=== PATIENT | female | born 1965 | race Caucasian/White ===

== ENCOUNTER → 2018-08-01 09:25 | Outpatient (CLI) | payer OTHER, SELFPAY ==
[2018-08-01 10:27] LABS: Hemoglobin A1c 5.2 % (4.2-6.3)
[2018-08-01 10:44] LABS: Cholesterol 228 mg/dL (200); High Density Lipoprotein 73 mg/dL; Thyroid Stim Hormone (TSH) 1.48 uIU/mL (0.358-3.74); Triglycerides 108 mg/dL; Very Low Density Lipoprotein 22 mg/dL (5-40)
== END ==
PROVIDERS: Family Provider Internal Medicine; PCP Internal Medicine; Referring Provider Internal Medicine; Visit Provider Internal Medicine
DX: Z13.220 Encounter for screening for lipoid disorders (principal); Z83.3 Family history of diabetes mellitus; F41.9 Anxiety disorder, unspecified
CPT/HCPCS: 36415; 80061; 83036; 84443

== ENCOUNTER → 2018-08-18 16:52 | Outpatient (CLI) | payer OTHER, SELFPAY ==
--- NOTE | 2018-08-18 16:54 | BI_ITS ---
MAMMOGRAPHY - BILATERAL SCREENING REASON FOR EXAM: Female, 53 years old. Routine annual screening examination. PERTINENT HISTORY: Non-contributory. TECHNIQUE: Digital bilateral breast michael (3D mammographic acquisition) in the CC and MLO projections. 2-D mediolateral oblique (MLO) and craniocaudad (CC) views of both breasts were obtained. CAD: Full Field Digital Mammography with Computer Added Detection was performed. COMPARISON: Comparison is made with prior study dated June 03, 2017 and March 01, 2016. FINDINGS: Breast Composition: The breasts are heterogeneously dense, which may obscure small masses. There are no dominant masses or suspicious calcifications. No other significant abnormalities are identified. There has been no significant change since the prior study. BI/SCREENING MAMM (CAD), BILAT IMPRESSION: Stable bilateral screening mammogram. Yearly follow-up mammogram recommended. (A) ASSESSMENT CATEGORY: BIRADS Category 1: Negative. A letter regarding these results will be sent to the patient by the facility within 30 days. Approximately 10% of breast cancers are not detected by mammography. A normal mammogram should not delay biopsy of a clinically suspicious abnormality. [id number] Electronically Signed: Shaun Brush MD at 10:22 EDT Tel [phone], Service support ,
== END ==
PROVIDERS: Family Provider Internal Medicine; PCP Internal Medicine; Visit Provider Internal Medicine
DX: Z12.31 Encounter for screening mammogram for malignant neoplasm of breast (principal)
CPT/HCPCS: 77063; 77067

== ENCOUNTER → 2019-02-23 13:59 | Outpatient (CLI) | payer OTHER, SELFPAY | PROVIDERS: Family Provider Internal Medicine; PCP Internal Medicine; Referring Provider Internal Medicine; Visit Provider Internal Medicine | DX: R00.2 Palpitations (principal) | CPT/HCPCS: 93225; 93226 ==

== ENCOUNTER → 2019-03-20 08:02 | Outpatient (CLI) | payer OTHER, SELFPAY ==
[2019-03-20 08:22] LABS: Absolute Lymphocyte Count 1.55 X10^3/ul (0.83-4.51); Absolute Neutrophil Count 2.9 X10^3/uL (2.0-7.7); Basophil# 0.04 X10^3/uL; Basophil% 0.8 % (0-1); Eosinophil# 0.34 X10^3/uL; Eosinophils% 6.4 % (0-5); Hemoglobin 13.5 g/dl (12.0-15.0); Lymphocyte # 1.55 X10^3/ul (4.0); Lymphocyte % 29.2 % (19-41); Mean Corp Hgb Conc 33.8 g/gl (32-36); Mean Corpuscular Volume 91.7 fL (81-99); Mean Platelet Vol. 9.6 fl (6.2-12.0); Monocyte# 0.47 X10^3/uL; Monocyte% 8.9 % (0-10); Neutrophil # 2.88 X10^3/uL (2.7-7.7); Neutrophil % 54.3 % (47-70); Platelet Count 280 K/mm3 (150-450); RBC Distribution Width CV 12.7 % (11.6-14.6); RBC Distribution Width SD 42.7 fl (35.1-43.9); Red Blood Count 4.36 M/mm3 (4.2-5.4); White Blood Count 5.3 K/mm3 (4.4-11.0)
[2019-03-20 08:24] LABS: POSITIVE COUNT NO; POSITIVE DIFFERENTIAL NO; POSITIVE MORPHOLOGY NO
[2019-03-20 09:16] LABS: ALB/GLOB Ratio 1.1 RATIO (0.9-2.4); AST(SGOT) 19 U/L (15-37); Alanine Aminotransfer ALT/SGPT 21 U/L (13-56); Albumin, Serum 3.6 g/dL (3.2-5.0); Alkaline Phosphatase 63 U/L (45-117); Anion Gap 6 (5-15); BUN 17 mg/dL (7-18); Calcium,Total 8.4 mg/dL (8.5-10.1); Chloride 106 mmol/L (98-107); Creatinine, Serum 1.06 mg/dL (0.55-1.02); EST Glomerular Filtration Rate 57 mL/min (>60); Est Glom Filt Rate - Afr Amer 69 mL/min (>60); Globulin 3.3 g/dL (2.2-4.2); Glucose 93 mg/dL (74-106); Magnesium 2.1 mg/dL (1.6-2.6); Protein, Total 6.9 g/dL (6.4-8.2); Sodium Level 140 mmol/L (136-145); Thyroid Stim Hormone (TSH) 1.73 uIU/mL (0.358-3.74)
[2019-03-22 11:34] LABS: Vitamin D,25 Hydroxy 76.5 ng/mL (29.95-100.01)
[2019-03-22 12:06] LABS: CHOLESTEROL TOTAL 238 mg/dL (100-199); HDL-C 78 mg/dL (>39); SMALL LDL-P 418 nmol/L (<=527); TRIGLYCERIDES 83 mg/dL (0-149)
[2019-03-22 12:19] LABS: INSULIN RESISTANCE SCORE <25 (<=45); LDL SIZE 21.6 nm (>20.5); LDL-C 143 mg/dL (0-99); LDL-P 1669 nmol/L (<1000)
== END ==
PROVIDERS: Family Provider Internal Medicine; PCP Internal Medicine; Referring Provider Internal Medicine; Visit Provider Internal Medicine
DX: Z13.220 Encounter for screening for lipoid disorders (principal); E55.9 Vitamin D deficiency, unspecified; R00.2 Palpitations
CPT/HCPCS: 36415; 80053; 80061; 82306; 83704; 83735; 84443; 85025

== ENCOUNTER → 2019-08-19 15:14 | Outpatient (CLI) | payer OTHER, SELFPAY ==
--- NOTE | 2019-08-19 15:17 | BI_ITS ---
MAMMOGRAPHY - BILATERAL SCREENING REASON FOR EXAM: Female, 54 years old. Routine annual screening examination. PERTINENT HISTORY: Mother with breast cancer. TECHNIQUE: Digital bilateral breast chiquita (3D mammographic acquisition) in the CC and MLO projections. 2-D mediolateral oblique (MLO) and craniocaudad (CC) views of both breasts were obtained. CAD: Full Field Digital Mammography with Computer Added Detection was performed. COMPARISON: Comparison is made with prior examination in August 18, 2018 and June 03, 2017. FINDINGS: Breast Composition: The breasts are heterogeneously dense, which may obscure small masses. There are no dominant masses or suspicious calcifications. No other significant abnormalities are identified. There has been no significant change since the prior study. BI/SCREEN MAMM (CAD) W/CHIQUITA BILAT IMPRESSION: Stable bilateral screening mammogram. Yearly follow-up mammogram recommended. (A) ASSESSMENT CATEGORY: BIRADS Category 1: Negative. A letter regarding these results will be sent to the patient by the facility within 30 days. Approximately 10% of breast cancers are not detected by mammography. A normal mammogram should not delay biopsy of a clinically suspicious abnormality. [id number] Electronically Signed: Shaun Brush, at 8:36 EDT , Service support ,
--- NOTE | 2019-08-19 15:19 | BD_ITS ---
STUDY: DUAL ENERGY X-RAY ABSORPTIOMETRY / DXA REASON FOR EXAM: Female, 54 years old. The patient is postmenopausal. No loss of height. TECHNIQUE: Bone Mineral Density (BMD) measurements of lumbar spine and bilateral hips were obtained. COMPARISON: Comparison is made with prior examination in June 03, 2017. FINDINGS: Lumbar Spine (L1-L4): g/cm2 (1.172) / T-score (0.0) / Z-score (0.8) Findings are suggestive of normal bone density with a low fracture risk. Left Femur Total: g/cm2 (0.871) / T-score (-1.1) / Z-score (-0.4) Left Femoral Neck: g/cm2 (0.839) / T-score (-1.4) / Z-score (-0.4) Right Femur Total: g/cm2 (0.849) / T-score (-1.3) / Z-score (-0.6) Right Femoral Neck: g/cm2 (0.783) / T-score (-1.8) / Z-score (0.8) The T-Scores on the most recent prior examination were: Lumbar Spine (L1-L4): There has been worsening of bone density since the previous examination. Left Femur Total: which represents an improvement of 7%. Right Femur Total: which represents a worsening of 2.3%. BD/Dexa Bone Density Study IMPRESSION: The patient is considered osteopenic as outlined below according to World Won Organization (WHO) criteria with a moderate fracture risk. There has been worsening of bone density since the previous examination. Reference Information: The T-score is the number of standard deviations above or below the standard which is normal for young adults at their peak bone mineral density. The World Health Organization (WHO) interprets the T-scores as follows: Above -1 Normal bone density Between -1 and -2.5 Osteopenia Equal to / or below -2.5 Osteoporosis As a practical clinical guideline, osteopenia may be graded as follows: Mild -1 through -1.5 Moderate -1.6 through -2.0 Severe -2.1 through -2.4 The Z-score is the number of standard deviations above or below age-matched controls. A Z-score of less than -1.5 would be considered abnormal. References: 1. NIH Osteoporosis and Related Bone Diseases http://www.osteo.org 2. International Society for Clinical Densitometry http://www.iscd.org 3. National Osteoporosis Foundation http://www.nof.org Electronically Signed: Shaun Brush, at 8:23 EDT , Service support ,
== END ==
PROVIDERS: Family Provider Internal Medicine; PCP Internal Medicine; Referring Provider Internal Medicine; Visit Provider Internal Medicine
DX: Z12.31 Encounter for screening mammogram for malignant neoplasm of breast (principal); Z78.0 Asymptomatic menopausal state
CPT/HCPCS: 77063; 77067; 77080

== ENCOUNTER → 2019-12-27 07:57 | Outpatient (CLI) | payer OTHER, SELFPAY ==
[2019-12-27 10:44] LABS: Thyroid Stim Hormone (TSH) 1.93 uIU/mL (0.358-3.74)
[2019-12-28 09:21] LABS: Vitamin D,25 Hydroxy 60.4 ng/mL
== END ==
PROVIDERS: PCP Internal Medicine; Referring Provider Internal Medicine; Visit Provider Internal Medicine
DX: E55.9 Vitamin D deficiency, unspecified (principal); F41.1 Generalized anxiety disorder
CPT/HCPCS: 36415; 82306; 84443

== ENCOUNTER → 2020-10-06 15:33 | Outpatient (CLI) | payer OTHER, SELFPAY ==
--- NOTE | 2020-10-06 15:36 | BI_ITS ---
MAMMOGRAPHY - BILATERAL SCREENING REASON FOR EXAM: Female, 55 years old. Routine annual screening examination. PERTINENT HISTORY: Non-contributory. TECHNIQUE: Digital bilateral breast chiquita (3D mammographic acquisition) in the CC and MLO projections. 2-D mediolateral oblique (MLO) and craniocaudad (CC) views of both breasts were obtained. CAD: Full Field Digital Mammography with Computer Added Detection was performed. COMPARISON: Comparison is made with prior study dated 08/19/2019 and 08/18/2018. FINDINGS: Breast Composition: The breasts are heterogeneously dense, which may obscure small masses. There are no dominant masses or suspicious calcifications. No other significant abnormalities are identified. There has been no significant change since the prior study. BI/SCREEN MAMM (CAD) W/CHIQUITA BILAT IMPRESSION: Stable bilateral screening mammogram. Yearly follow-up mammogram recommended. (A) ASSESSMENT CATEGORY: BIRADS Category 1: Negative. A letter regarding these results will be sent to the patient by the facility within 30 days. Approximately 10% of breast cancers are not detected by mammography. A normal mammogram should not delay biopsy of a clinically suspicious abnormality. [id number] Electronically Signed: Shaun Brush, at 8:50 EST , Service support ,
== END ==
PROVIDERS: PCP Internal Medicine; Referring Provider Internal Medicine; Visit Provider Internal Medicine
DX: Z12.31 Encounter for screening mammogram for malignant neoplasm of breast (principal); Z78.0 Asymptomatic menopausal state
CPT/HCPCS: 77063; 77067

== ENCOUNTER → 2021-04-21 08:36 | Outpatient (CLI) | payer OTHER, SELFPAY ==
[2021-04-21 08:12] VITALS: BMI 29.5
--- NOTE | 2021-04-21 08:39 | RAD_ITS ---
HISTORY: right foot pain. TECHNIQUE: XR Foot Min 3 Views. Number of images including paperwork: 3. COMPARISON: None. FINDINGS: OSSEOUS STRUCTURES: No acute fracture. Mineralization unremarkable. JOINT SPACES: Maintained. No dislocation. RAD/Foot min 3 Views IMPRESSION: No acute fracture or dislocation identified in the right foot. at 0942 Reported and signed by: Mine Gil MD Electronically Signed: Mine Gil MD at 9:40 EDT Tel , Service support ,
== END ==
PROVIDERS: PCP Internal Medicine; Referring Provider Physician Assistant; Visit Provider Physician Assistant
DX: M79.671 Pain in right foot (principal)
CPT/HCPCS: 73630

== ENCOUNTER 2021-05-27 17:11 | Emergency (ER) | payer OTHER, SELFPAY ==
[2021-04-21 08:12] VITALS: BMI 29.5
[2021-05-27 17:12] VITALS: BP 142/93; PULSE 106; PULSE 108; RESP 18; TEMP 36.3; O2SAT 97; O2SAT 98; BMI 28.8
--- NOTE | 2021-05-27 17:47 | RAD_ITS ---
STUDY: X-RAY - LEFT ANKLE REASON FOR EXAM: Female, 55 years old. Injury, pain TECHNIQUE: 3 view(s) of the ankle. COMPARISON: None. FINDINGS: Normal visualized distal tibia and fibula. Normal medial and lateral malleoli. Normal tibiotalar articulation and ankle mortise. Cortical irregularity with potential fracture line involves the plantar surface of the cuboid best seen on lateral view. There is also cortical irregularity of the anterior and inferior calcaneus with potential adjacent osseous fragment (lateral view). The visualized subtalar, talonavicular, calcaneocuboid and tarsal articulations are normal. The soft tissue structures are unremarkable. RAD/Ankle min 3 Views IMPRESSION: Possible nondisplaced cuboid and inferior, anterior calcaneal fractures. Electronically Signed: Velasquez Bryant MD ([place]) at 18:09 EDT , Service support ,
--- NOTE | 2021-05-27 17:47 | RAD_ITS ---
STUDY: X-RAY - LEFT FOOT CLINICAL: Female, 55 years old. injury, dorsal foot pain TECHNIQUE: 3 view(s) of the foot. COMPARISON: None. FINDINGS: Cortical irregularity with potential fracture line involves the plantar surface of the cuboid best seen on lateral view. There is also cortical irregularity of the anterior and inferior calcaneus with potential adjacent osseous fragment (lateral view). Normal visualized subtalar, talonavicular, calcaneocuboid, tarsal and tarsometatarsal articulations. Normal metatarsi. Normal metatarsophalangeal joint of the great toe. Normal tibial and fibular sesamoid bones. Normal interphalangeal joint of the great toe. Normal phalanges of the great toe. Normal second through fifth metatarsophalangeal joints. Normal interphalangeal joints and phalanges of the lesser toes. Mild soft tissue swelling. RAD/Foot min 3 Views IMPRESSION: Possible nondisplaced cuboid and inferior, anterior calcaneal fractures. Electronically Signed: Velasquez Bryant MD ([place]) at 18:08 EDT , Service support ,
[2021-05-27] MEDS: HYDROcodone Bitartrate/Apap 5/325 Tablet PO ×2 (17:56→19:29)
--- NOTE | 2021-05-27 18:00 | EDS_ITS ---
HPI History of Present Illness Chief Complaint: Lower Extremity Injury Informant: patient Narrative Narrative: Patient is a 55-year-old female who presents to the emergency department for left ankle and foot pain. She states that her dog ran into her and she heard a pop. Majority the pain is over the top of her foot and around her entire ankle. She denies injuring anything else. She has not been able to bear any weight on it since. She has not taken anything for it. She currently rates pain as severe. Any movement or weightbearing aggravates this. Resting alleviates her symptoms somewhat. [facility] Medical History (Updated 05/27/21 @ 19:[address] Junaid Gaspar DO) Anxiety and depression Asthma S/P colorectal surgery, follow-up exam Home Medications calcium citrate-vitamin D3 2 ea PO DAILY 09/15/14 [History Last Taken Unknown] duloxetine 90 mg PO DAILY 09/15/14 [History Last Taken Unknown] budesonide 0.25 mg/2 mL suspension for nebulization 0.25 mg INHALATION BID 04/21/21 [History Last Taken Unknown] conjugated estrogens 0.3 mg tablet 0.3 mg PO DAILY 04/21/21 [History Last Taken Unknown] amlodipine 2.5 mg PO DAILY 05/27/21 [History Last Taken Unknown] hydrocodone-acetaminophen 1 tab PO Q8H PRN 3 Days #10 tab 05/27/21 [Rx Last Taken Unknown] Allergy/AdvReac Type Severity Reaction Status Date / Time amoxicillin [From Augmentin] Allergy Mild vomitting Verified 04/21/21 08:14 clavulanic acid Allergy Mild vomitting Verified 04/21/21 08:14 [From Augmentin] codeine Allergy Mild vomitting Verified 04/21/21 08:14 Surgical History H/O: hysterectomy History of [facility] Hx of cholecystectomy S/P tonsillectomy and adenoidectomy Social History Smoking Status: Never smoker alcohol intake: never substance use type: does not use what type of physical activity do you participate in: none seatbelt use: always do you feel safe at home: No ROS ROS ED Constitutional Constitutional ED: Denies chills or fever(s) Eyes Eyes: Denies change in vision ENT ENT ED: Denies rhinorrhea Cardiovascular Cardiovascular: Denies chest pain Respiratory/Chest Respiratory/Chest: Denies cough or dyspnea Gastrointestinal Gastrointestinal: Denies abdominal pain, nausea or vomiting Musculoskeletal Musculoskeletal: Denies back pain or neck pain Integumentary Denies rash Neurologic Neurologic: Denies dizziness, headache(s) or weakness EXAM Physical Exam Const Vital Signs: 05/27/21 17:12 Temperature 97.3 F L Temperature Source Temporal Pulse Rate 106 H Respiratory Rate 18 Blood Pressure 142/93 H Blood Pressure Mean 109 Pulse Ox 97 Oxygen Delivery Method Room Air Positive well nourished and well developed General Appearance ED: well developed and NAD HEENT Reports normocephalic and head/scalp atraumatic Negative for trauma Eyes PERRL and EOMs intact bilaterally Neck supple Resp normal respiratory effort and clear to auscultation bilaterally Auscultation: Negative for rales, rhonchi or wheezes Cardio regular rate, regular rhythm and no murmurs Extremity Extremity Narrative: Tenderness to left ankle and dorsal foot. No pain over base of fifth metatarsal. No obvious deformity. There is mild swelling. Neur ovascular intact. Limited range of motion of ankle due to pain. Neuro no sensory deficits noted Sensorium / Orientation: alert Motor Exam: strength 5/5 throughout Psych mental status grossly normal Skin no rashes or lesions noted MDM MDM MDM Narrative Medical decision making narrative: Patient presents the ED for left ankle and foot pain after her dog ran into her. She has not been able to bear any weight. On arrival to the ED she is mildly tachycardic but otherwise normal vital signs. She is in no acute distress. She is given a [place] for symptomatic relief and x-rays are being obtained. Foot x-ray is interpreted as a possible nondisplaced cuboid and inferior/anterior calcaneal fractures. Patient placed in Ortho-Glass splint. This is a posterior splint is wrapped with Rick wrap. Patient neurovascularly intact pre and post splinting. She is recommended to be nonweightbearing until she can follow-up with podiatry. She is given a prescription for [place]. Recommending RICE as well. She has crutches. Return precautions are reviewed with her. She understands and is agreeable this plan. Discharged home in stable condition. All questions were answered. Discharge Plan Triage Chief Complaint: Lower Extremity Injury ED Provider: Junaid Gaspar Dx/Rx/DC Orders Clinical Impression: Fracture, cuboid, Calcaneal fracture Instructions: ED Fracture, Foot Prescriptions: New hydrocodone-acetaminophen 5-325 mg tablet 1 tab PO Q8H PRN (Reason: pain) 3 Days Qty: 10 RF: 0 No Action Premarin 0.3 mg tablet 0.3 mg PO DAILY RF: 0 budesonide [Pulmicort] 0.25 mg/2 mL suspension for nebulization 0.25 mg inhalation BID RF: 0 duloxetine 30 MG capsule 90 mg PO DAILY RF: 0 calcium citrate-vitamin D3 1 EACH tablet 2 ea PO DAILY RF: 0 amlodipine 2.5 mg tablet 2.5 mg PO DAILY RF: 0 Primary Care Provider: Emily Smith Referrals: Emily Smith DO [Primary Care Provider] - Justine Cheung DPM [STAFF PHYSICIAN] - 2 Days Disposition Disposition: Home, Self Care Discharge Date/Time: 05/27/21 19:37
== END 2021-05-27 19:37 | disposition home or self-care (01) ==
PROVIDERS: Emergency Provider Emergency Medicine; PCP Internal Medicine
DX: S92.215A Nondisplaced fracture of cuboid bone of left foot, initial encounter for closed fracture (principal); S92.002A Unspecified fracture of left calcaneus, initial encounter for closed fracture; W54.1XXA Struck by dog, initial encounter; Y93.9 Activity, unspecified; Y92.9 Unspecified place or not applicable; Y99.9 Unspecified external cause status; J45.909 Unspecified asthma, uncomplicated; F32.9 Major depressive disorder, single episode, unspecified; F41.9 Anxiety disorder, unspecified; Z79.899 Other long term (current) drug therapy
CPT/HCPCS: 29515; 73610; 73630; 99283

== ENCOUNTER → 2021-10-23 15:47 | Outpatient (CLI) | payer OTHER, SELFPAY ==
--- NOTE | 2021-10-23 15:51 | BI_ITS ---
MAMMOGRAPHY - BILATERAL SCREENING REASON FOR EXAM: Female, 56 years old. Routine annual screening examination. PERTINENT HISTORY: Non-contributory. TECHNIQUE: Digital bilateral breast chiquita (3D mammographic acquisition) in the CC and MLO projections. 2-D mediolateral oblique (MLO) and craniocaudad (CC) views of both breasts were obtained. CAD: Full Field Digital Mammography with Computer Added Detection was performed. COMPARISON: Comparison is made with prior study dated 10/06/2020 and 08/19/2019. FINDINGS: Breast Composition: The breasts are heterogeneously dense, which may obscure small masses. There are no dominant masses or suspicious calcifications. No other significant abnormalities are identified. There has been no significant change since the prior study. BI/SCRN MAMM (CAD)W/CHIQUITA BILAT IMPRESSION: Stable bilateral screening mammogram. Yearly follow-up mammogram recommended. (A) ASSESSMENT CATEGORY: BIRADS Category 1: Negative. A letter regarding these results will be sent to the patient by the facility within 30 days. Approximately 10% of breast cancers are not detected by mammography. A normal mammogram should not delay biopsy of a clinically suspicious abnormality. [id number] Electronically Signed: Shaun Brush MD at 8:02 EST , Service support ,
--- NOTE | 2021-10-23 15:53 | BD_ITS ---
STUDY: DUAL ENERGY X-RAY ABSORPTIOMETRY / DXA REASON FOR EXAM: Female, 56 years old. [id number]. The patient is postmenopausal. TECHNIQUE: Bone Mineral Density (BMD) measurements of lumbar spine and bilateral hips were obtained. COMPARISON: Comparison is made with prior study dated 08/19/2019 and 06/03/2017. FINDINGS: Lumbar Spine (L1-L4): g/cm2 (1.033) / T-score (0.1) / Z-score (1.3) Findings are suggestive of normal bone density with a low fracture risk. Left Femur Total: g/cm2 (0.799) / T-score (-1.2) / Z-score (-0.4) Left Femoral Neck: g/cm2 (0.630) / T-score (-2.0) / Z-score (-0.8) Right Femur Total: g/cm2 (0.874) / T-score (-0.6) / Z-score (0.2) Right Femoral Neck: g/cm2 (0.731) / T-score (-1.1) / Z-score (0.1) The T-Scores on the most recent prior examination were: Lumbar Spine (L1-L4): There has been worsening of bone density since the previous examination. Left Femur Total: which represents a worsening of 1.1%. Right Femur Total: which represents an improvement of 11.1%. BD/Dexa Bone Density Study IMPRESSION: The patient is considered osteopenic as outlined below according to World Won Organization (WHO) criteria with a moderate fracture risk. There has been improvement of bone density since the previous examination. Reference Information: The T-score is the number of standard deviations above or below the standard which is normal for young adults at their peak bone mineral density. The World Health Organization (WHO) interprets the T-scores as follows: Above -1 Normal bone density Between -1 and -2.5 Osteopenia Equal to / or below -2.5 Osteoporosis As a practical clinical guideline, osteopenia may be graded as follows: Mild -1 through -1.5 Moderate -1.6 through -2.0 Severe -2.1 through -2.4 The Z-score is the number of standard deviations above or below age-matched controls. A Z-score of less than -1.5 would be considered abnormal. References: 1. NIH Osteoporosis and Related Bone Diseases www osteo.org 2. International Society for Clinical Densitometry www iscd.org 3. National Osteoporosis Foundation www nof.org Electronically Signed: Shaun Brush MD at 15:14 EST , Service support ,
== END ==
PROVIDERS: PCP Internal Medicine; Referring Provider Internal Medicine; Visit Provider Internal Medicine
DX: Z12.31 Encounter for screening mammogram for malignant neoplasm of breast (principal); Z78.0 Asymptomatic menopausal state; M85.80 Other specified disorders of bone density and structure, unspecified site
CPT/HCPCS: 77063; 77067; 77080

== ENCOUNTER → 2022-07-13 | Outpatient (CLI) | payer OTHER, SELFPAY ==
[2022-07-13 08:51] LABS: Cholesterol 218 mg/dL (200); High Density Lipoprotein 72 mg/dL; Thyroid Stim Hormone (TSH) 2.16 uIU/mL (0.358-3.74); Triglycerides 131 mg/dL; Very Low Density Lipoprotein 26 mg/dL (5-40)
[2022-07-15 08:40] LABS: Vitamin D,25 Hydroxy 68.4 ng/mL
== END | disposition home or self-care (01) ==
LOC: LAB 06:59
PROVIDERS: PCP Internal Medicine; Referring Provider Internal Medicine; Visit Provider Internal Medicine
DX: Z13.220 Encounter for screening for lipoid disorders (principal); E55.9 Vitamin D deficiency, unspecified; R63.5 Abnormal weight gain
CPT/HCPCS: 36415; 80061; 82306; 84443

== ENCOUNTER 2022-10-01 11:30 | Outpatient (RCR) | payer OTHER, SELFPAY ==
--- NOTE | 2022-08-30 13:41 | HP.PTEVAL_ITS ---
Patient's Visit Information BRUNO SOLOMON is a 57 year old F referred to Physical Therapy by Dr. Junaid Wiley DO with a diagnosis of R SHLD IMPRINGEMENT. Date of Evaluation: 08/30/22 Physical Therapist: Melinda Tinoco PT, Cert MDT - Visit Plan Frequency: 2-3x /Week Duration: 4-6 Weeks Plan: R SHLD US X 6. RIGHT UE ROM/STRENGTHENING. EMPHASIZE HEP INSTRUCTION WITH WRITTEN INSTRUCTIONS NEEDED PER PATIENT REQUEST. POSTURE CORRECTION/STRENGTHENING. INSTRUCTION IN PROPER WORK STATION ERGONOMICS. - Subjective Diagnosis: IMPINGEMENT SYNDROME OF R SHLD. 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 SOMETIMES ROOMING PATIENTS AND DOING IMMUNIZATIONS. ARE YOU CURRENTLY OFF WORK FOR THIS: NO. Present symptoms: R SHLD PAIN. NO NECK PAIN. DENIES R UE PAIN, NUMBNESS AND TINGLING. PATIENT REPORTS 3 EPISODES (2 TIMES IN BED AND ONCE AT WORK) OF R SHLD FEELING LIKE HER SHLD SLIPPED OUT (FIRST TIME WAS A MONTH AGO AND THE LAST ONE WAS IN DR. WILEY'S OFFICE Friday08/26/22) AND STATES DR. WILEY TOLD HER IT IS NOT DISLOCATING AND WHAT SHE WAS FEELING IS A BURSA CLICK. Present since: A COUPLE MONTHS AGO. Pain Scale: Worst - 5/10 Least - 0/10. Currently: 0/10. Commenced as a result of: NO APPARENT REASON. Symptoms at onset: SAME. Worse: TRYING TO LAY IN R SDLY, SOMETIMES FASTENING SEAT BELT, DRIVING, SCRUBBING FLOORS, HEAVY CLEANING - AFTER THE FACT. REACHING WITHOUT ARM SUPPORT. THE WORST PAIN IS AT NIGHT. WASN'T ABLE TO SLEEP ON R SIDE UNTIL REC'D INJECTION. NOW CAN LAY ON RIGHT SIDE SOME. Better: R SHLD INJECTION Friday BY DR. WILEY (APPROX 90% IMPROVEMENT). MALOXACAM. RESTING IT. CHANGE OF POSITION. SUPPORTING ARM OPPOSED TO REACHING. Disturbed sleep: YES. Previous history/Previous treatment: UNREMARKABLE. DENIES NECK PROBLEMS. Dizziness: NO. Tinnitis: NO. Nausea: NO. Shortness of Breath: NO. Difficulty Swollowing: NO. Gait: INDEP GAIT AND TRANSFERS. Accidents: NO. Unexplained weight loss: NO. Imagin08/26/22: STUDY: X-RAY - RIGHT SHOULDER. REASON FOR EXAM: Female, 57 years old. pain. TECHNIQUE: 4 view(s) of the shoulder. COMPARISON: None. . FINDINGS: There is mild degenerative arthrosis of the glenohumeral articulation. There is degenerative arthrosis of the acromioclavicular joint without. inferior osseous spur formation. Normal acromion. Normal humeral head and visualized proximal humerus. The soft tissue structures are unremarkable. Normal visualized pulmonary apex. . RAD/Shoulder min 2 Views. IMPRESSION: Mild glenohumeral and acromioclavicular joint arthrosis. PMH/Recent major surgery: ASTHMA, ANXIETY, DEPRESSION. SACRAL NERVE IMPLANT FOR COLORECTAL AND URINARY ISSUES. A LOT OF PELVIC SX'S. OTHER: PATIENT WALKS FOR EX - WALKS THE DOG ABOUT 10 MIN DAILY FOR EX OTHERWISE NOT CURRENTLY EXERCISING. SHE REPORTS SHE IS RELATIVELY SEDENTARY. RECHECK RECOMMEND. PATIENT WANTS TO MINIMIZE THERAPY VISITS DUE TO HER BUSY WORK SCHEDULE. - Objective Sitting Posture/Standing Posture: MILD FH AND RSH'S. SHLD LEVELS SYMMETRICAL. Active Correction of posture: NE. Other Observations: INDEP GAIT AND TRANSFERS. Sensory deficit: ANGEL UE LIGHT TOUCH SENSATION GROSSLY INTACT AND SYMMETRICAL. ROM deficit: ANGEL UE AROM WFL ALL PLANES. Motor deficit: ANGEL UE STRENGTH GROSSLY 5/5 WITH MMT'ING EXCEPT LEFT SHLD: FLEX 4/5, ABD 4-/5, ER 3+/5, IR 4/5. PATIENT REPORTS R SHLD ACHYING FOR ABOUT 1-2 MINUTES POST R SHLD ROM AND STRENGTH TESTING THEN PAIN WENT COMPLETELY AWAY AGAIN. Cervical Mvmt Loss: Flex: NIL. Pro: NIL. Ext: MIN. Ret: MIIN. RSB: MIN. LSB: MIN. R Rot: MIN. L Rot: MIN. Postural strength: POOR. Palpation: NO ACUTE NECK OR SHLD TENDERNESS WITH LIGHT PALPATION. NO SUBLUXATION. THER ACT: INSTRUCTED PATIENT IN YTB MR'S X 10, R SHLD IR X 10 AND R SHLD ER X 5. INSTRUCTED IN THESE EX'S X 10, 1 TIME A DAY TOLERATED. MODIFIED R SHLD ER TO COMFORTABLE ROM AND TENSION TO TRY TO AVOID SHLD ACHING. PATIENT TOLERATED ALL EX'S WELL WITHOUT C/O INCREASED PAIN EXCEPT ER. ABLE TO MINIMIZE ACHE WITH MODIFICATIONS. - Balance/Special Test Scores Quick DASH Score: 17.5000 - Goals Goal 1:: DECREASE C/O R SHLD PAIN AND SLIPPING FEELING. Goal Time Frame: 2-4 Weeks Goal 2:: INCREASE R SHLD FUNCTIONAL STRENGTH TO 5/5 WITHOUT PAIN. Goal Time Frame: 2-4 Weeks Goal 3:: PATIENT WILL BE INDEP WITH A HEP FOR CONTINUED IMPROVEMENT ONCE FORMAL PHYSICAL THERPAY CONCLUDES. Goal Time Frame: 2-4 Weeks Goal 4:: PATIENT WILL BE ABLE TO SLEEP ON RIGHT SIDE WITHOUT PAIN. Goal Time Frame: 2-4 Weeks - Anticipated Interventions Patient/Client Instruction: Educate patient on: Condition, Plan of Care, Risk Factors For the Purpose of:: To improve self management Therapeutic Exercise to Include: Strength training, Body mechanics, Postural training, Neuromotor development, Active ROM, Scapular Strength/Stabilization For the Purpose of:: To decrease pain, To increase ROM, To improve muscle performance and motor function, To increase tolerance to activity/condition/position, To improve ability of physical actions for home/community/work/leisure Cryotherapy (ice pack, ice massage): Yes Thermo therapy (hot pack): Yes Ultrasound (thermal/non thermal): Yes For the Purpose of:: To decrease pain, To improve nutrient delivery to tissue Thank you for the opportunity to evaluate your patient. For Medicare and Medicare HMO plans, please review the plan of care and approve it. It will need to be FAXED BACK to us at [phone] for Medicare purposes. For Medicare only, by signing this I certify the plan of care. Please let me know if there are questions or concerns regarding this plan of care. Physician Signature: Date:
--- NOTE | 2022-10-01 11:55 | HP.PTDCSUM ---
It has been my pleasure to treat BRUNO SOLOMON referred by Dr. Junaid Wiley DO, with the diagnosis of R SHLD IMPRINGEMENT for a total of 6 visit(s). Discharge Date: Please see the following information for a summary of their discharge status. Subjective: PATIENT REPORTS THE PAIN WENT AWAY BUT IT IS COMING BACK JUST A LITTLE BIT. A COUPLE NIGHTS GETS SOME PAIN LYING ON R SIDE. NO LONGER FEELING SLIPPING. PATIENT REPORTS MISSING SOME TIFFANY'TS DUE TO GETTING REALLY SICK WITH COVID BUT ABLE TO GET THEM RE-SCHEDULED. PATIENT REPORTS SHE FEELS SHE CAN CONTINUE THE EX'S ON HER OWN AT THIS POINT AND WILL FOLLOW UP WITH DR. WILEY NEEDED FOR MRI OR OTHER PROCEEDURES. Right Shoulder Pain Intensity (Out of 10): 0 % Improvement: 90 Objective/Function: PATIENT WAS SEEN TODAY FOR RE-ASSESSMENT OF PROGRESS TOWARD THE SET PT GOALS AND THE NEED FOR FURTHER PHYSICAL THERAPY VS READINESS FOR DISCHARGE. UPON EXAM TODAY PATIENT HAS FULL RIGHT SHLD ROM AND STRENGTH WITH MMT'ING AND ONLY HAS C/O OF MILD RIGHT SHLD PAIN DURING R SHLD ABD MMT (AND THE PAIN ABOLISHES IMMEDIATELY UPON REST). SHE IS INDEP WITH A HEP AND APPROPRIATE FOR D/C TO INDEP EX. PATIENT IS AGREEABLE. Goal 1:: DECREASE C/O R SHLD PAIN AND SLIPPING FEELING. Goal Progress: Goal Met Goal 2:: INCREASE R SHLD FUNCTIONAL STRENGTH TO 5/5 WITHOUT PAIN. Goal Progress: Goal Met Goal 3:: PATIENT WILL BE INDEP WITH A HEP FOR CONTINUED IMPROVEMENT ONCE FORMAL PHYSICAL THERPAY CONCLUDES. Goal Progress: Goal Met Goal 4:: PATIENT WILL BE ABLE TO SLEEP ON RIGHT SIDE WITHOUT PAIN. Goal Progress: Progressing Plan: D/C If there are questions or concerns regarding this patient's physical therapy, please feel free to call me at [phone]. Thank you for the referral of this patient. Sincerely, Melinda Tinoco, PT, Cert MDT Balance/Gait/Functional tests - Balance/Special Test Scores Quick DASH Score: 0
== END 2022-10-01 14:49 | disposition home or self-care (01) ==
LOC: PT 11:30
PROVIDERS: PCP Internal Medicine; Referring Provider Orthopaedic Surgery; Visit Provider Orthopaedic Surgery
DX: M75.41 Impingement syndrome of right shoulder (principal)
CPT/HCPCS: 97110; 97162; 97164; 97530

== ENCOUNTER → 2022-10-24 | Outpatient (CLI) | payer OTHER, SELFPAY ==
--- NOTE | 2022-10-24 15:39 | BI_ITS ---
MAMMOGRAPHY - BILATERAL SCREENING REASON FOR EXAM: Female, 57 years old. Routine annual screening examination. PERTINENT HISTORY: Non-contributory. TECHNIQUE: Digital bilateral breast chiquita (3D mammographic acquisition) in the CC and MLO projections. 2-D mediolateral oblique (MLO) and craniocaudad (CC) views of both breasts were obtained. CAD: Full Field Digital Mammography with Computer Added Detection was performed. COMPARISON: Comparison is made with prior study dated 10/23/2021 and 10/06/2020. FINDINGS: Breast Composition: The breasts are heterogeneously dense, which may obscure small masses. There are no dominant masses or suspicious calcifications. No other significant abnormalities are identified. There has been no significant change since the prior study. BI/SCRN MAMM (CAD)W/CHIQUITA BILAT IMPRESSION: Stable bilateral screening mammogram. Yearly follow-up mammogram recommended. (A) ASSESSMENT CATEGORY: BIRADS Category 2: Benign. A letter regarding these results will be sent to the patient by the facility within 30 days. Approximately 10% of breast cancers are not detected by mammography. A normal mammogram should not delay biopsy of a clinically suspicious abnormality. [id number] Electronically Signed: Shaun Brush MD at 8:05 EST ,
== END | disposition home or self-care (01) ==
LOC: OPBI 15:36
PROVIDERS: PCP Internal Medicine; Referring Provider Internal Medicine; Visit Provider Internal Medicine
DX: Z12.31 Encounter for screening mammogram for malignant neoplasm of breast (principal)
CPT/HCPCS: 77063; 77067

== ENCOUNTER → 2023-01-29 | Outpatient (CLI) | payer OTHER, SELFPAY ==
--- NOTE | 2023-01-29 09:58 | RAD_ITS ---
EXAM: XR CHEST, 2 VIEWS CLINICAL INDICATION: COUGH/ASTHMA TECHNIQUE: Frontal and lateral views of the chest. This report was created using [employer] report generation technology. COMPARISON: XR Chest dated 07/08/2014 FINDINGS: LUNGS AND PLEURAL SPACES: Normal. No consolidation or edema. No pneumothorax. No effusion. HEART: Normal heart size. MEDIASTINUM: No mediastinal or hilar mass. BONES/JOINTS: No acute abnormality. RAD/Chest PA and Lateral IMPRESSION: No acute cardiopulmonary abnormality. No interval change. Electronically Signed: Gerber May MD at 10:28 EDT ,
== END | disposition home or self-care (01) ==
LOC: MTRAD 09:55
PROVIDERS: PCP Internal Medicine; Referring Provider Internal Medicine Pulmonary Disease; Visit Provider Internal Medicine Pulmonary Disease
DX: J45.909 Unspecified asthma, uncomplicated (principal); R05.9 Cough, unspecified
CPT/HCPCS: 71046

== ENCOUNTER → 2023-06-28 | Outpatient (CLI) | payer OTHER, SELFPAY ==
[2023-06-28 08:26] LABS: Cholesterol 237 mg/dL (200); High Density Lipoprotein 79 mg/dL; Thyroid Stim Hormone (TSH) 2.08 uIU/mL (0.358-3.74); Triglycerides 122 mg/dL; Very Low Density Lipoprotein 24 mg/dL (5-40)
[2023-06-30 08:29] LABS: Vitamin D,25 Hydroxy 61.6 ng/mL
== END | disposition home or self-care (01) ==
LOC: LAB 07:07
PROVIDERS: PCP Internal Medicine; Referring Provider Internal Medicine; Visit Provider Internal Medicine
DX: Z13.220 Encounter for screening for lipoid disorders (principal); E55.9 Vitamin D deficiency, unspecified; F41.9 Anxiety disorder, unspecified
CPT/HCPCS: 36415; 80061; 82306; 84443

== ENCOUNTER → 2023-11-20 | Outpatient (CLI) | payer OTHER, SELFPAY ==
--- NOTE | 2023-11-20 15:52 | BI_ITS ---
MAMMOGRAPHY - BILATERAL SCREENING REASON FOR EXAM: Female, 58 years old. Routine annual screening examination. PERTINENT HISTORY: Non-contributory. TECHNIQUE: Digital bilateral breast chiquita (3D mammographic acquisition) in the CC and MLO projections. 2-D mediolateral oblique (MLO) and craniocaudad (CC) views of both breasts were obtained. CAD: Full Field Digital Mammography with Computer Added Detection was performed. COMPARISON: Comparison is made with prior study dated October 24, 2022 and October 23, 2021. FINDINGS: Breast Composition: The breasts are heterogeneously dense, which may obscure small masses. There is a 4.1 mm x 4 mm well-defined nodule in the slightly inferior lateral aspect of the left breast. Correlation with ultrasound is recommended. No other significant abnormalities are identified. BI/SCRN MAMM (CAD)W/CHIQUITA BILAT IMPRESSION: 4.1 mm x 4 mm well-defined nodule in the slightly inferior lateral aspect of the left breast. Correlation with ultrasound is recommended. ASSESSMENT CATEGORY: BIRADS Category 0: Incomplete. Need additional imaging evaluation. A letter regarding these results will be sent to the patient by the facility within 30 days. Approximately 10% of breast cancers are not detected by mammography. A normal mammogram should not delay biopsy of a clinically suspicious abnormality. [id number] Electronically Signed: Shaun Brush MD at 10:03 EST ,
--- NOTE | 2023-11-20 15:54 | BD_ITS ---
STUDY: DUAL ENERGY X-RAY ABSORPTIOMETRY / DXA REASON FOR EXAM: Female, 58 years old. M85.89 TECHNIQUE: Bone Mineral Density (BMD) measurements of lumbar spine and bilateral hips were obtained. COMPARISON: Comparison is made with prior study dated October 23, 2021. FINDINGS: Lumbar Spine (L1-L4): g/cm2 (1.083) / T-score (0.6) / Z-score (1.9) Findings are suggestive of normal bone density with a low fracture risk. Left Femur Total: g/cm2 (0.814) / T-score (-1.1) / Z-score (-0.1) Left Femoral Neck: g/cm2 (0.647) / T-score (-1.8) / Z-score (-0.6) Right Femur Total: g/cm2 (0.837) / T-score (-0.9) / Z-score (0.0) Right Femoral Neck: g/cm2 (0.678) / T-score (-1.5) / Z-score (-0.3) The T-Scores on the most recent prior examination were: Lumbar Spine (L1-L4): There has been improvement of bone density since the previous examination. Left Femur Total: which represents an improvement of 1.8. Right Femur Total: which represents a worsening of 4.3%. BD/Dexa Bone Density Study IMPRESSION: The patient is considered osteopenic as outlined below according to World Won Organization (WHO) criteria with a moderate fracture risk. There has been improvement of bone density since the previous examination. Reference Information: The T-score is the number of standard deviations above or below the standard which is normal for young adults at their peak bone mineral density. The World Health Organization (WHO) interprets the T-scores as follows: Above -1 Normal bone density Between -1 and -2.5 Osteopenia Equal to / or below -2.5 Osteoporosis As a practical clinical guideline, osteopenia may be graded as follows: Mild -1 through -1.5 Moderate -1.6 through -2.0 Severe -2.1 through -2.4 The Z-score is the number of standard deviations above or below age-matched controls. A Z-score of less than -1.5 would be considered abnormal. References: 1. NIH Osteoporosis and Related Bone Diseases www osteo.org 2. International Society for Clinical Densitometry www iscd.org 3. National Osteoporosis Foundation www nof.org Electronically Signed: Shaun Brush MD at 9:59 EST ,
== END | disposition home or self-care (01) ==
LOC: OPBD 15:51
PROVIDERS: PCP Internal Medicine; Referring Provider Internal Medicine; Visit Provider Internal Medicine
DX: Z12.31 Encounter for screening mammogram for malignant neoplasm of breast (principal); M85.80 Other specified disorders of bone density and structure, unspecified site; Z78.0 Asymptomatic menopausal state
CPT/HCPCS: 77063; 77067; 77080

== ENCOUNTER → 2023-12-02 | Outpatient (CLI) | payer OTHER, SELFPAY ==
--- NOTE | 2023-12-02 07:51 | US_ITS ---
STUDY: ULTRASOUND BREAST - LEFT REASON FOR EXAM: Female, 58 years old. Abnormal screening mammogram. TECHNIQUE: Axial and longitudinal images of the LEFT breast were performed with a high resolution ultrasound transducer. # OF IMAGES: 13 COMPARISON: Comparison is made with prior study dated November 20, 2023. FINDINGS: LEFT Breast: The lower outer quadrant of the left breast was examined with ultrasound. There is a 5 mm x 5 mm x 4 mm cyst at the 6:00 position breast at 3 cm from the nipple. Adjacent to this, a similar-appearing cyst is seen measuring 3 mm x 3 mm x 2 mm. US/Breast Limited Unilateral IMPRESSION: 2 subcentimeter cysts seen at 5 to 6:00 position of the breast as described. ASSESSMENT CATEGORY: BIRADS Category 2: Benign. A letter regarding these results will be sent to the patient by the facility within 30 days. Electronically Signed: Shaun Brush MD at 15:01 EST ,
== END | disposition home or self-care (01) ==
LOC: OPUS 07:50
PROVIDERS: PCP Internal Medicine; Referring Provider Internal Medicine; Visit Provider Internal Medicine
DX: R92.8 Other abnormal and inconclusive findings on diagnostic imaging of breast (principal)
CPT/HCPCS: 76642

== ENCOUNTER → 2024-02-14 | Outpatient (CLI) | payer OTHER, SELFPAY ==
--- NOTE | 2024-02-14 08:09 | MRI_ITS ---
STUDY: MRI BRAIN WITHOUT CONTRAST REASON FOR EXAM: Female, 58 years old. HEADACHE, TRIGEMINAL NEURALGIA- LEFT SIDE TECHNIQUE: Standardized multiplanar fat and water weighted pulse sequences were obtained. COMPARISON: None. FINDINGS: Normal size of the ventricles and extra-axial spaces for the patient''s age. Normal white matter tracts of the supratentorial brain. There are no demyelinating plagues of the supratentorial brain, brainstem or cerebellum. There are no findings suspicious for multiple sclerosis (MS). Normal bilateral frontal poles, and orbital frontal and gyrus recti of the frontal lobes. Normal bilateral temporal tips of the temporal lobes. There are no white matter shear injuries (diffuse axonal injuries). There are no parenchymal hemorrhages or hematomas. There are no findings to suggest prior closed head parenchymal injury of the brain. There is no evidence for recent intracranial ischemia or other cause of cytotoxic edema on diffusion weighted imaging (DWI). No hydrocephalus or midline shift is present. No focal parenchymal edema is seen. The bilateral trigeminal nerves origins adjacent to the imani and the visualized aspects within Meckel''s caves are normal without enlargement or edema or focal mass. Normal bilateral basal ganglia. Normal thalami. There is no extra-axial fluid accumulation. Normal flow voids within the major intracranial circulation suggesting patency by spin echo criteria. Normal sella turcica, pituitary gland, infundibular stalk, optic chiasm and hypothalamus. Normal tectal plate and pineal gland. Normal midbrain, imani and medulla. Normal cerebellum. Normal basal cisterns. Normal bilateral temporal bones. Normal bilateral internal auditory canals. No demonstrated orbital abnormality, within the constraints of a routine brain study. Normal visualized paranasal sinuses. Normal calvarium and skull base. Normal visualized soft tissue structures. Normal visualized upper cervical spine. MRI/Brain without Contrast IMPRESSION: Normal unenhanced MRI of the brain. The bilateral trigeminal nerves origins adjacent to the imani and the visualized aspects within Meckel''s caves are normal without enlargement or edema or focal mass. Electronically Signed: Nathaniel Curtis MD at 12:28 EDT ,
== END | disposition home or self-care (01) ==
LOC: MRI 08:07
PROVIDERS: PCP Internal Medicine; Referring Provider Internal Medicine; Visit Provider Internal Medicine
DX: R51.9 Headache, unspecified (principal); G50.0 Trigeminal neuralgia
CPT/HCPCS: 70551

== ENCOUNTER 2024-05-28 16:53 | Emergency (ER) | payer OTHER, SELFPAY ==
[2024-05-28 16:54] VITALS: BP 169/85; PULSE 94; RESP 16; TEMP 36.6; O2SAT 95
--- NOTE | 2024-05-28 17:08 | EDS_ITS ---
HPI History of Present Illness Chief Complaint: Lower Extremity Injury Informant: patient Occured/Mechanism Mechanism/Context: Yes injury and Yes blunt trauma Onset/Context/Timing Onset: Today Context: Sudden Onset Timing: Continuous Quality of Pain: Aching Location: R lateral foot Current Severity: Moderate Maximum Severity: Moderate Worsened by: WBing Relieved by: rest Associated Symptoms Associated Symptoms: Negative for Parasthesia, Weakness or Loss of Funtion Narrative Narrative: Patient states she was barefoot on her deck brushing her dog and she stepped on a piece of wood on the deck and received a splinter in her right foot. She reached down to get it out lost her balance fell over onto the outside of her r ight foot versus the deck, heard a pop and pain. [facility] Medical History Subacromial impingement of right shoulder Sacral neurostimulator in situ S/P colorectal surgery, follow-up exam Asthma Anxiety and depression Home Medications ?Medication ?Instructions ?Recorded ?Last Taken ?Type calcium citrate 200 mg 2 ea PO DAILY 09/15/14 Unknown History calcium-vitamin D3 6.25 mcg (250 unit) tablet budesonide 0.25 mg/2 mL suspension 0.25 mg inhalation BID 04/21/21 Unknown History for nebulization (Pulmicort) amlodipine 2.5 mg tablet 2.5 mg PO DAILY 05/27/21 Unknown History B6 0.85 mg-folic 200 tab PO 08/26/22 Unknown History [id number] oral chewable tablet (Neuriva Plus) amitriptyline 10 mg tablet 10 mg PO DAILY 08/26/22 Unknown History cholecalciferol (vitamin D3) 125 125 mcg PO DAILY 08/26/22 Unknown History mcg (5,000 unit) capsule estradiol 0.5 mg tablet 0.5 mg PO 08/26/22 Unknown History ibandronate 150 mg tablet 150 mg PO 08/26/22 Unknown History lactobacillus combo no.11 15 1 cap PO DAILY 08/26/22 Unknown History billion cell sprinkle capsule (Probiotic) lorazepam 0.5 mg tablet (Ativan) 0.5 mg PO DAILY PRN 08/26/22 Unknown History omeprazole 20 mg capsule,delayed 20 mg PO DAILY 08/26/22 Unknown History release duloxetine 60 mg capsule,delayed 60 mg PO DAILY 05/21/23 Unknown History release (Cymbalta) oxycodone-acetaminophen 5 mg-325 1 tab PO Q6H PRN PRN Pain 3 days 05/28/24 Unknown Rx mg tablet #10 TABLETS Allergy/AdvReac Type Severity Reaction Status Date / Time amoxicillin (From Augmentin) Allergy Mild vomitting Verified 05/28/24 16:54 carbamazepine Allergy Mild Rash Verified 05/28/24 16:54 clavulanic acid (From Allergy Mild vomitting Verified 05/28/24 16:54 Augmentin) codeine Allergy Mild vomitting Verified 05/28/24 16:54 Surgical History H/O: hysterectomy S/P tonsillectomy and adenoidectomy History of LAVH Hx of cholecystectomy Social History Smoking Status: Never smoker alcohol intake: never substance use type: does not use what type of physical activity do you participate in: none seatbelt use: always do you feel safe at home: No ROS ROS ED Constitutional Constitutional ED: Denies chills or fever(s) Musculoskeletal Musculoskeletal: Reports extremity pain; Denies neck pain Integumentary Denies Abrasions, rash or wounds Neurologic Neurologic: Denies paresthesias or weakness EXAM Physical Exam Const Vital Signs: 05/28/24 16:54 Temperature 97.9 F Temperature Source Temporal Pulse Rate 94 Respiratory Rate 16 Blood Pressure 169/85 H Blood Pressure Mean 113 Pulse Ox 95 Oxygen Delivery Method Room Air Positive well nourished and well developed General Appearance ED: well developed and NAD Neck full ROM and supple Back/Spine normal ROM and normal to inspection Extremity normal to inspection and full ROM Extremity Narrative: tender to palpation throughout mid and distal aspect right 5th metatarsal; mild ecchymosis/swelling, no deformity. no other bony foot/ankle tenderness. Neuro oriented x3, no focal motor deficits and no sensory deficits noted Sensorium / Orientation: alert Psych mental status grossly normal and thought process normal Skin no wounds Rashes: no rashes MDM MDM MDM Narrative Medical decision making narrative: Three-view x-ray series of the right foot on my interpretation appears to show a nondisplaced García fracture of the fifth metatarsal. Discussed with Dr. Hernandez, agrees with close outpatient follow-up, nonweightbearing postop shoe crutches pain medicine will be offered. Radiography Diagnostic Testing: Clinical Impression(s) from Imaging Studies Foot X-Ray 05/28/24 17:13 IMPRESSION: Acute nondisplaced fracture at the base of the fifth metatarsal with soft tissue swelling Electronically Signed: Celestine Sanford MD at 17:42 EDT Reading Location ID and State: [facility] / [place] , Service support , Management Discussion w/another healthcare provider: Director Of Patient Financial Services (podiatrjenaro hernandez) Discharge Plan Triage Chief Complaint: Lower Extremity Injury ED Provider: Kurt Campos Dx/Rx/DC Orders Clinical Impression: Nondisplaced fracture of fifth right metatarsal bone Instructions: Fifth Metatarsal Fx Prescriptions: New oxycodone-acetaminophen 5-325 mg tablet 1 tab PO Q6H PRN PRN (Reason: Pain) 3 Days Qty: 10 0RF No Action budesonide [Pulmicort] 0.25 mg/2 mL suspension for nebulization 0.25 mg inhalation BID estradiol 0.5 mg tablet 0.5 mg PO ibandronate 150 mg tablet 150 mg PO omeprazole 20 mg capsule,delayed release(DR/EC) 20 mg PO DAILY cholecalciferol (vitamin D3) 125 mcg (5,000 unit) capsule 125 mcg PO DAILY Neuriva Plus 0.85 mg-200 mcg-1.2 mcg tablet,chewable PO Probiotic 15 billion cell capsule, sprinkle 1 cap PO DAILY Rx Instructions: do not crush/chew/cut; swallow whole OR may open and sprinkle in cold drink/food lorazepam [Ativan] 0.5 mg tablet 0.5 mg PO DAILY PRN amitriptyline 10 mg tablet 10 mg PO DAILY duloxetine [Cymbalta] 60 mg capsule,delayed release(DR/EC) 60 mg PO DAILY calcium citrate-vitamin D3 1 EACH tablet 2 ea PO DAILY amlodipine 2.5 mg tablet 2.5 mg PO DAILY Patient Comments: take 1 tablet by mouth once daily Primary Care Provider: Emily Smith Referrals: Ronaldo Hernandez DPM [Med Staff - Active Staff] - As soon as possible Luis,Emily, DO [Primary Care Provider] - Activity Restrictions/Additional Instructions: Avoid weight bearing right foot Print Language: Colombian Disposition Disposition: Home, Self Care
--- NOTE | 2024-05-28 17:13 | RAD_ITS ---
STUDY: X-RAY - RIGHT FOOT CLINICAL: Female, 58 years old. Pain and swelling TECHNIQUE: 3 view(s) of the foot. COMPARISON: None. FINDINGS: Normal talus, calcaneus, and tarsal bones. Normal visualized subtalar, talonavicular, calcaneocuboid, tarsal and tarsometatarsal articulations. There is an acute, nondisplaced fracture at the base of the fifth metatarsal with soft tissue swelling. Other metatarsals are unremarkable Normal metatarsophalangeal joint of the great toe. Normal tibial and fibular sesamoid bones. Normal interphalangeal joint of the great toe. Normal phalanges of the great toe. Normal second through fifth metatarsophalangeal joints. Normal interphalangeal joints and phalanges of the lesser toes. The soft tissue structures are unremarkable. RAD/Foot min 3 Views IMPRESSION: Acute nondisplaced fracture at the base of the fifth metatarsal with soft tissue swelling Electronically Signed: Celestine Sanford MD at 17:42 EDT ,
[2024-05-28] MEDS: HYDROcodone Bitartrate/Apap 5/325 Tablet PO (18:48)
[2024-05-28 18:55] VITALS: BP 138/65; PULSE 74; RESP 18; TEMP 36.6; O2SAT 97
== END 2024-05-28 19:03 | disposition home or self-care (01) ==
PROVIDERS: Emergency Provider Emergency Medicine; PCP Internal Medicine; Visit Provider Emergency Medicine
DX: S92.354A Nondisplaced fracture of fifth metatarsal bone, right foot, initial encounter for closed fracture (principal); S90.851A Superficial foreign body, right foot, initial encounter; W17.89XA Other fall from one level to another, initial encounter; Z90.49 Acquired absence of other specified parts of digestive tract; F41.9 Anxiety disorder, unspecified; F32.A Depression, unspecified
CPT/HCPCS: 73630; 99284

== ENCOUNTER 2024-06-17 09:14 | Day surgery (SDC) | payer OTHER, SELFPAY ==
[2024-06-17] VITALS (8 sets, daily range): BP systolic 134–150; BP diastolic 71–86; PULSE 87–115; RESP 16–20; TEMP 36.1–36.8; O2SAT 96–100; BMI 30.1
--- NOTE | 2024-06-17 10:08 | PRE.ANES_ITS ---
ASA Classification* ASA Classification ASA Classification: 2 Assessment & Plan Anesthesia* Anesthesia Assessment Anesthesia Assessment: Discussed sedation and/or anesthesia options, risks, benefits, and alternatives with patient/parents/legal guardian/POA. Questions invited. The patient/parents/legal guardian/POA seems to understand and agrees to proceed with anesthesia plan. Reviewed the physical assessment, medical history, allergy history and patient home medications list prior to surgery/procedure/anesthetic and documented any changes. Performed airway and anesthesia risk assessments. Anesthesia Type Anesthesia Type: General (see written pre-anesthesia record for full assessment) Anesthesia Focused Assessment* Temperature: 98.2 F Pulse Rate: 92 Blood Pressure: 138/86 Respiratory Rate: 18 Pulse Ox: 98 Airway Assessment Mouth opens: >3 cm Mallampati Score: II Focused Labs Anesthesia Preop lab: CBC WBC 5.3 K/mm3 (4.4-11.0) 03/20/19 08:06 RBC 4.36 M/mm3 (4.2-5.4) 03/20/19 08:06 Hgb 13.5 g/dl (12.0-15.0) 03/20/19 08:06 Hct 40.0 % (37-47) 03/20/19 08:06 Plt Count 280 K/mm3 (150-450) 03/20/19 08:06 CHEMISTRY Potassium 4.0 mmol/L (3.5-5.1) 03/20/19 08:06 Sodium 140 mmol/L (136-145) 03/20/19 08:06 Magnesium 2.1 mg/dL (1.6-2.6) 03/20/19 08:06 BUN 17 mg/dL (7-18) 03/20/19 08:06 Creatinine 1.06 mg/dL (0.55-1.02) H 03/20/19 08:06 Glucose 93 mg/dL (74-106) 03/20/19 08:06 TSH 2.08 uIU/mL (0.358-3.74) 06/28/23 07:13 COAG PT 12.6 SECONDS (11.9-14.4) 06/05/12 09:00 Pre-Assessment Diagnosis/Proposed Procedure Planned Operative Procedure(s): ORIF RIGHT SALGADO FRACTURE Anesthesia History 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 When Was Last Pacemaker Check QUESTION #4 FULL TEXT: You/Your Family Experience fever (hyperthermia) with Anesthesia Last Oral Intake Last Oral intake: Last Oral Intake NPO since 00:00 06/17/24 09:53 Meds taken in AM with sips of Yes 06/17/24 09:53 water? Meds patient instructed to take am of surgery PONV PONV - fabric worker leader: PONV - fabric worker leader Female Yes 06/11/24 13:09 HX of Motion Sickness Yes 06/11/24 13:09 HX of N/V After Surgery Yes 06/11/24 13:09 Non-Smoker Yes 06/11/24 13:09 Duration of Surgery greater Yes 06/11/24 13:09 than 60 minutes Number of Risk Factors 5 06/11/24 13:09 PONV Score Severe Risk 06/11/24 13:09 Height & Weight Height & Weight: Anesthesia: Height & Weight Height 5 ft 06/17/24 09:53 Weight: 69.944 kg 06/17/24 09:53 Body Mass Index (BMI) 30.1 06/17/24 09:53 Respiratory Assessment Respiratory Assessment - fabric worker leader: Respiratory Tract Infection Hx - fabric worker leader Hx Respiratory Tract Infection No 06/11/24 13:09 STOP Sleep Apnea STOP Sleep Apnea - fabric worker leader: STOP Sleep Apnea - fabric worker leader Hx Hypertension No 06/11/24 13:09 Hx Sleep Apnea No 06/11/24 13:09 CPAP No 09/12/23 16:18 BIPAP No 09/12/23 16:18 Do you snore loudly (louder Yes 06/11/24 13:09 than talking or can be heard Do you often feel tired/ No 06/11/24 13:09 fatigued/ sleepy during daytime? Has anyone observed you stop No 06/11/24 13:09 breathing during sleep? STOP Results Negative 06/11/24 13:09 QUESTION #5 FULL TEXT : Do you snore loudly (louder than talking or can be heard through closed doors)? 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 Specify any problems Hx of Preganancy in last 3 No 06/11/24 13:09 Months Nurse Filling Out Transfusion DSCHRIBER 06/11/24 13:09 & Questions: Date: 06/11/24 06/11/24 13:09 Time: 13:11 06/11/24 13:09 Patient unable to answer at this time (ie. confused, unrespo /Reproduction History /Reproductive History - fabric worker leader: /Reproductive Hx- fabric worker leader Hx Now No 06/11/24 13:09 Gestational Age (in weeks): EDC: Hx Hx Para Hx Section SAB No 06/11/24 13:09 Active Medications Active Medications: Current Medications Generic Name Dose Route Start Last Admin Trade Name Freq PRN Reason Stop Dose Admin Cefazolin Sodium 2 gm/ Sodium 110 mls @ 150 mls/hr 06/17/24 11:00 Chloride IV 06/17/24 11:43 PREOP ONE Lactated Ringer's 1,000 mls @ 15 mls/hr 06/17/24 09:45 06/17/24 09:52 IV 15 mls/hr .Q48H EDILBERTO Administration PFSH Medical History Raynaud disease Wears contact lenses History of IBS Gastric reflux Non-smoker History of edema Cardiology follow-up encounter History of stress test Subacromial impingement of right shoulder Sacral neurostimulator in situ S/P colorectal surgery, follow-up exam Asthma Anxiety and depression Home Medications ?Medication ?Instructions ?Recorded ?Last Taken ?Type calcium citrate 200 mg 2 ea PO DAILY 09/15/14 06/16/24 History calcium-vitamin D3 6.25 mcg (250 unit) tablet amlodipine 2.5 mg tablet 2.5 mg PO DAILY 05/27/21 06/17/24 History amitriptyline 10 mg tablet 10 mg PO QHS PRN PRN sleep 08/26/22 06/16/24 History cholecalciferol (vitamin D3) 125 125 mcg PO DAILY 08/26/22 06/16/24 History mcg (5,000 unit) capsule estradiol 0.5 mg tablet 0.5 mg PO DAILY 08/26/22 06/17/24 History ibandronate 150 mg tablet 150 mg PO QMONTH 08/26/22 Unknown History lactobacillus combo no.11 15 1 cap PO DAILY 08/26/22 06/16/24 History billion cell sprinkle capsule (Probiotic) lorazepam 0.5 mg tablet (Ativan) 0.5 mg PO DAILY PRN anxiety 08/26/22 Unknown History omeprazole 20 mg capsule,delayed 20 mg PO DAILY 08/26/22 06/17/24 History release duloxetine 60 mg capsule,delayed 60 mg PO DAILY 05/21/23 06/17/24 History release (Cymbalta) oxycodone-acetaminophen 5 mg-325 1 tab PO Q6H PRN PRN Pain 3 days 05/28/24 Unknown Rx mg tablet #10 TABLETS budesonide 200 mcg/actuation 200 mcg inhalation DAILY 06/11/24 06/17/24 History breath activated powder inhaler inulin 2 gram chewable tablet 2 g PO DAILY 06/11/24 06/16/24 History (Prebiotic Fiber) Allergy/AdvReac Type Severity Reaction Status Date / Time carbamazepine Allergy Mild Rash Verified 06/17/24 09:50 amoxicillin (From Augmentin) AdvReac Mild vomitting Verified 06/17/24 09:50 clavulanic acid (From AdvReac Mild vomitting Verified 06/17/24 09:50 Augmentin) codeine AdvReac Mild vomitting Verified 06/17/24 09:50 Surgical History Hx of colonoscopy H/O: hysterectomy S/P tonsillectomy and adenoidectomy History of LAVH Hx of cholecystectomy Social History Smoking Status: Never smoker alcohol intake: never substance use type: does not use what type of physical activity do you participate in: none seatbelt use: always do you feel safe at home: No Review of Systems (Anesthesia) ROS Narrative System reviewed and no additional complaints, except as documented.
--- NOTE | 2024-06-17 11:15 | RAD_ITS ---
STUDY: X-RAY - RIGHT MIDFOOT CLINICAL: Female, 58 years old. Fracture. TECHNIQUE: 5 intraoperative spot films of the right midfoot. COMPARISON: Right foot radiographs dated 05/28/2024. FINDINGS: Normal visualized talonavicular, calcaneocuboid, tarsal and tarsometatarsal articulations. There is a new partially threaded screw entering the proximal fifth metatarsal, fixating the previously seen transverse fracture of the proximal fifth metatarsal. Normal remainder of the metatarsi. RAD/Foot 2 Views IMPRESSION: New partially threaded screw entering the proximal fifth metatarsal, fixating the previously seen transverse fracture of the proximal fifth metatarsal. Electronically Signed: Nav Hughes MD at 16:04 EDT ,
--- NOTE | 2024-06-17 12:31 | PCM.OPRPT ---
Problems Associated Problem List Diagnoses (1) Fracture of base of fifth metatarsal bone of right foot: Report of Operation Date of Procedure: 06/17/24 Pre-Operative Diagnosis: 1) closed, displaced, wright fracture right foot Post-Operative Diagnosis: same Surgery/Procedure Performed:: 1) Open reduction with internal fixation, right foot Description of Surgical Findings:: patient suffered wright fracture after suffering inversion injury to right foot. Plan for open reduction internal fixation for early weightbearing and range of motion decided. Surgeon: Ronaldo Hernandez molding machine operator: None (Juancarlos reyes) Type of Anesthesia: General Special Medications: popliteal block per anesthesia Specimen's removed: none Drains: none Estimated Blood Loss (mL): minimal Description of Procedure: Patient brought back the operating placed complete supine position operating room table. Patient induced under general anesthesia. Right well-padded right thigh tourniquet applied. Follow-up osseous prominences offloaded prevent any compression neuropraxia. Right lower extremity was positioned on blankets and a hip bump was placed to knock out any external rotation of the right lower extremity. Right lower extremity was scrubbed prepped draped using typical aseptic fashion. Once cleared by anesthesia procedure #1 was performed Procedure #1 open reduction internal fixation right Wright fracture: Right lower extremity was elevated exsanguinated tourniquet was inflated 300 mmHg. Using fluoroscopic guidance the fifth metatarsal base fracture site were marked out a percutaneous guidewire for a 5 mm screw was placed from the tip of the fifth metatarsal base down the intramedullary canal across the fracture site. Incision made through skin epidermis down to subcutaneous tissue blunt dissection taken down to level fifth metatarsal base. Next the site was drilled and tapped and a solid screw was placed across the fifth metatarsal base fracture site after removal of guidepin. Adequate reduction good bony apposition and stabilization of the fifth metatarsal base fracture identified in fluoroscopic imaging. Tourniquet was let down. Site was flushed with copious amounts normal sterile saline closed with 3-0 Prolene using horizontal mattress technique. Site was dressed with Betadine Adaptic 4 x 4's Kerlix and Rick bandage. Patient was transported to PACU with vital signs stable and vascular status intact all digits for further monitoring prior to discharge. Patient tolerated procedure and anesthesia well in apparent satisfactory condition. Patient will be discharged with protected weightbearing cam walking boot and follow-up in 1 week. No complications Adequate reduction fifth metatarsal base Wright fracture.
--- NOTE | 2024-06-17 12:32 | PCM.POST.ANE ---
Anesthesia: Postop Eval I Current Vital Signs Temperature: 97.8 F Pulse Rate: 115 Blood Pressure: 150/81 Respiratory Rate: 20 Pulse Ox: 99 Assessment Airway patent: Yes Spontaneous unlabored respirations: Yes nausea: No Vomiting: No Anesthesia Complication: No Fluid Hydration Crystalloid volume administer (ml): 1,100 Total IV fluid infused: 1,100 Progress Note Anesthesia document: Postop Eval 1 completed: Yes
--- NOTE | 2024-06-17 14:39 | POSTOPAN2_ITS ---
Anesthesia Postop Eval I Sum Postop Eval Completion status Anesthesia document: Postop Eval 1 completed: Yes Anesthesia Postop Eval I Summary Anesthesia Postop Eval I Summary: Anesthesia Postop Eval I: Assessment Summary Airway patent Yes 06/17/24 12:32 [email or web address] Spontaneous unlabored Yes 06/17/24 12:32 [email or web address] [email or web address] respirations Mental status nausea No 06/17/24 12:32 [email or web address] [email or web address] Vomiting No 06/17/24 12:32 [email or web address] Anesthesia Postop Eval I: Fluid Summary Crystalloid volume administer 1,100 06/17/24 12:32 [email or web address] [email or web address] (ml) Colloids volume administered ( ml) Blood Product volume administered (ml) Total IV fluid infused 1,100 06/17/24 12:32 [email or web address] [email or web address] Anesthesia Postop Eval I: Summary Notes Anesthesia Complication No 06/17/24 12:32 [email or web address] [email or web address] Anesthesia Complication Comment: Post-operative progress note Anesthesia: Postop Eval II Evaluation Mental status: Awake and Calm Pain Level: 1 nausea: No Vomiting: No Complications Anesthesia Complication: No
--- NOTE | 2024-06-17 14:39 | PCM.POSTANE2 ---
Anesthesia Postop Eval I Sum Postop Eval Completion status Anesthesia document: Postop Eval 1 completed: Yes Anesthesia Postop Eval I Summary Anesthesia Postop Eval I Summary: Anesthesia Postop Eval I: Assessment Summary Airway patent Yes 06/17/24 12:32 [email or web address] Spontaneous unlabored Yes 06/17/24 12:32 [email or web address] respirations Mental status nausea No 06/17/24 12:32 [email or web address] Vomiting No 06/17/24 12:32 [email or web address] Anesthesia Postop Eval I: Fluid Summary Crystalloid volume administer 1,100 06/17/24 12:32 [email or web address] (ml) Colloids volume administered ( ml) Blood Product volume administered (ml) Total IV fluid infused 1,100 06/17/24 12:32 [email or web address] Anesthesia Postop Eval I: Summary Notes Anesthesia Complication No 06/17/24 12:32 [email or web address] Anesthesia Complication Comment: Post-operative progress note Anesthesia: Postop Eval II Evaluation Mental status: Awake and Calm Pain Level: 1 nausea: No Vomiting: No Complications Anesthesia Complication: No
== END 2024-06-17 14:14 | disposition home or self-care (01) ==
LOC: SDC 09:18 → AC 09:21
PROVIDERS: PCP Internal Medicine; Referring Provider Podiatrist; Visit Provider Podiatrist
PROC: (CPT 28485; principal; 2024-06-17 10:45)
DX: S92.351A Displaced fracture of fifth metatarsal bone, right foot, initial encounter for closed fracture (principal); X50.1XXA Overexertion from prolonged static or awkward postures, initial encounter; I73.00 Raynaud's syndrome without gangrene; Z79.899 Other long term (current) drug therapy
CPT/HCPCS: 28485; 01480; 73620; 76000; C1713; J7120; J2405

== ENCOUNTER → 2024-11-23 | Outpatient (CLI) | payer BC, SELFPAY ==
--- NOTE | 2024-11-23 17:01 | BI_ITS ---
MAMMOGRAPHY - BILATERAL SCREENING REASON FOR EXAM: Female, 59 years old. Routine annual screening examination. PERTINENT HISTORY: Non-contributory. TECHNIQUE: Digital bilateral breast chiquita (3D mammographic acquisition) in the CC and MLO projections. 2-D mediolateral oblique (MLO) and craniocaudad (CC) views of both breasts were obtained. CAD: Full Field Digital Mammography with Computer Added Detection was performed. COMPARISON: Comparison is made with prior study of November 20, 2023 and July 25, 2022. FINDINGS: Breast Composition: The breasts are heterogeneously dense, which may obscure small masses. There are no dominant masses or suspicious calcifications. Stable 4 mm x 4.1 mm well-defined nodule in the slightly inferior lateral aspect of the left breast. Prior sonogram demonstrated this to be a small cyst. No other significant abnormalities are identified. There has been no significant change since the prior study. BI/SCRN MAMM (CAD)W/CHIQUITA BILAT IMPRESSION: Stable bilateral screening mammogram. Yearly follow-up mammogram recommended. (A) ASSESSMENT CATEGORY: BIRADS Category 2: Benign. A letter regarding these results will be sent to the patient by the facility within 30 days. Approximately 10% of breast cancers are not detected by mammography. A normal mammogram should not delay biopsy of a clinically suspicious abnormality. [id number] Electronically Signed: Shaun Brush MD at 10:39 EST ,
== END | disposition home or self-care (01) ==
PROVIDERS: PCP Internal Medicine; Referring Provider Internal Medicine; Visit Provider Internal Medicine
DX: Z12.31 Encounter for screening mammogram for malignant neoplasm of breast (principal)
CPT/HCPCS: 77063; 77067

== ENCOUNTER → 2025-02-19 | Outpatient (CLI) | payer BC, SELFPAY ==
[2025-02-19 12:37] LABS: Cholesterol 201 mg/dL (<=200); High Density Lipoprotein 75 mg/dL; Low Density Lipoprotein Calc. 110 mg/dL; Triglycerides 79 mg/dL; Very Low Density Lipoprotein 16 mg/dL (5-40); cholesterol:hdl ratio screen 2.68
[2025-02-19 13:24] LABS: Vitamin D,25 Hydroxy 79.2 ng/mL (30-100)
== END | disposition home or self-care (01) ==
PROVIDERS: PCP Internal Medicine; Referring Provider Internal Medicine; Visit Provider Internal Medicine
DX: E55.9 Vitamin D deficiency, unspecified (principal); Z13.220 Encounter for screening for lipoid disorders; R63.5 Abnormal weight gain
CPT/HCPCS: 36415; 80061; 82306; 84443